=== PATIENT | male | born 1980 | race Hispanic/Latino ===

== ENCOUNTER 2018-01-25 12:42 | Emergency (ER) | payer SELFPAY ==
[2018-01-25] MEDS ORDERED: SODIUM CHLORIDE 0.9% 1000ML 1,000 ML IV ONE (13:13)
[2018-01-25] MEDS ORDERED: ONDANSETRON ODT 4 MG TAB ONE (13:13)
[2018-01-25 13:17] LABS: BASOPHILS % (AUTO) 0.2 % (0.0-5.0); HEMATOCRIT 45.5 % (42-54); MEAN CORPUSCULAR HEMOGLOBIN 31.6 pg (27.0-33.0); MEAN CORPUSCULAR HGB CONC 35.4 g/dL (32.0-36.0); MEAN CORPUSCULAR VOLUME 89.1 fL (79-99); MONOCYTES % (AUTO) 5.3 % (3.0-13.0); NEUTROPHILS % (AUTO) 83.5 % (40.0-77.0); PLATELET COUNT (AUTO) 265 K/uL (130-400); RED CELL DISTRIBUTION WIDTH 12.9 % (11.0-15.5); WHITE BLOOD COUNT (AUTO) 9.5 K/uL (4.8-10.8)
[2018-01-25 13:30] LABS: POTASSIUM 3.7 mmol/L (3.5-5.1)
[2018-01-25 13:34] LABS: ALBUMIN 4.7 g/dL (3.5-5.0); BILIRUBIN,TOTAL 0.5 mg/dL (0.2-1.0); TOTAL PROTEIN, SERUM 8.8 g/dL (6.0-8.3)
[2018-01-25 14:34] LABS: BILIRUBIN,URINE Negative (NEGATIVE); COLOR,URINE Yellow (YELLOW); GLUCOSE, URINE (UA) Negative (NEGATIVE); KETONES,URINE 15 mg/dL (NEGATIVE); LEUKOCYTE ESTERASE ,URINE Negative (NEGATIVE); NITRATE,URINE Negative (NEGATIVE); OCCULT BLOOD,URINE Negative (NEGATIVE); PROTEIN,URINE Negative (NEGATIVE); UROBILINOGEN,URINE 0.2 mg/dL (0.2-1.0)
[2018-01-25 14:38] LABS: APPEARANCE,URINE SLIGHTLY CLOUDY (CLEAR)
[2018-01-25 14:42] LABS: AMPHET/METH SCREEN,URINE NEGATIVE (NEGATIVE); BARBITURATE SCREEN, URINE NEGATIVE (NEGATIVE); BENZODIAZEPINES SCREEN,URINE POSITIVE (NEGATIVE); CANNABINOID SCREEN,URINE NEGATIVE (NEGATIVE); COCAINE SCREEN,URINE POSITIVE (NEGATIVE); OPIATE SCREEN,URINE NEGATIVE (NEGATIVE); PHENCYCLIDINE SCREEN,URINE NEGATIVE (NEGATIVE)
[2018-01-25] MEDS ORDERED: DICYCLOMINE HCL 10 MG/ML 2ML AMP IM ONE (14:54)
[2018-01-25] MEDS ORDERED: PROMETHAZINE HCL 25 MG/ML 1ML AMPULE IM ONE (14:54)
[2018-01-25 15:07] LABS: BACTERIA,URINE Few /HPF (None Seen); MUCUS,URINE Rare LPF (None Seen); RBC,URINE 0-1 /HPF (0-1); SQUAMOUS EPITHELIAL CELL,UR Rare /HPF (0-2); WBC,URINE 0-1 /HPF (0-1)
[2018-01-25] MEDS ORDERED: FAMOTIDINE 20MG TAB 20 MG TAB ONE (16:20)
[2018-01-25] MEDS ORDERED: SUCRALFATE 1 GM TABLET ONE (16:20)
== END 2018-01-25 17:40 | disposition home or self-care (01) ==
LOC: EDH 12:42
DX: R10.13 Epigastric pain (principal); R19.7 Diarrhea, unspecified; R11.2 Nausea with vomiting, unspecified; F14.10 Cocaine abuse, uncomplicated; F10.10 Alcohol abuse, uncomplicated; I10 Essential (primary) hypertension; F41.9 Anxiety disorder, unspecified
CPT/HCPCS: 36415; 80053; 80305; 81001; 83690; 85025; 96360; 96361; 96372 ×2; 99285; J0500; J2550; J7030

== ENCOUNTER 2019-09-27 22:36 | Emergency (ER) | payer SELFPAY ==
[~2019-09-27 22:36] MED LIST: LISI10TA7 PO; TRAM50TA4 PO
[2019-09-27] MEDS ORDERED: SODIUM CHLORIDE 0.9% 1000ML 1,000 ML IV ONE (22:49)
[2019-09-27] MEDS ORDERED: ONDANSETRON HCL 4 MG/2 ML VIAL ONE (22:49)
[2019-09-27] MEDS ORDERED: HYDROCODONE/ACETAMINOPHEN 5/325 MG TAB ONE (22:50)
== END 2019-09-28 00:19 | disposition home or self-care (01) ==
LOC: EDH 22:36
DX: S00.03XA Contusion of scalp, initial encounter (principal); S00.33XA Contusion of nose, initial encounter; S20.219A Contusion of unspecified front wall of thorax, initial encounter; J32.9 Chronic sinusitis, unspecified; R04.0 Epistaxis; I10 Essential (primary) hypertension; F14.10 Cocaine abuse, uncomplicated; F10.20 Alcohol dependence, uncomplicated; Q60.0 Renal agenesis, unilateral; K85.90 Acute pancreatitis without necrosis or infection, unspecified; X58.XXXA Exposure to other specified factors, initial encounter; Y93.9 Activity, unspecified; Y92.9 Unspecified place or not applicable; Y99.9 Unspecified external cause status
CPT/HCPCS: 70450; 70486; 71101; 72040; 96374; 99284; J2405; J7030